=== PATIENT | male | born 1995 | race African-American/Black ===

== ENCOUNTER 2018-12-31 15:15 | Observation (INO) ==
[2018-12-31] MEDS ORDERED: LACTATED RINGERS 1,000 ML IV STA (15:18)
[2018-12-31] MEDS ORDERED: DIPH/TET/ACEL PERT BOOSTER VACCINE 0.5 ML VIAL IM ONE (15:18)
[2018-12-31] MEDS ORDERED: HYDROmorphone 2 MG/1 ML VIAL IV STA (15:19)
[2018-12-31] MEDS ORDERED: ONDANSETRON 4 MG/2 ML VIAL IV STA (15:19)
[2018-12-31 15:49] LABS: Basophils # 0.1 10*3/uL (0.0-0.2); Basophils % 0.5 % (0.0-0.8); Eosinophils # 0.1 10*3/uL (0.0-0.87); Eosinophils % 0.9 % (0.00-10.9); Hemoglobin 14.9 GM/DL (14.0-18.0); Immature Granulocytes % 0.5 %; Immature Granulocytes Absolute 0.06 #; Lymphocytes # 3.6 10*3/uL (1.4-4.0); Mean Corpuscular HGB Conc 33.1 GM/DL (32-36); Mean Corpuscular Volume 96.4 FL (87-102); Mean Platelet Volume 11.4 FL (9.6-12.0); Monocytes % 5.1 % (1.7-12.7); Platelet Count 218 T/CUMM (130-400); Red Blood Count 4.67 MC/CUMM (3.8-5.5); Red Cell Distribution Width 12.3 % (9.3-17.3); White Blood Count 12.8 T/CUMM (4-12)
[2018-12-31 15:51] LABS: Alanine Aminotransferase 19 U/L (16-61); Albumin 4.5 G/DL (3.4-5.0); Alkaline Phosphatase 60 U/L (45-117); Aspartate Amino Transferase 17 U/L (0-37); Bilirubin,Total < 0.39 MG/DL (0.2-1.0); Blood Urea Nitrogen 4 MG/DL (7-18); Calcium 9.7 MG/DL (8.5-10.1); Estimated Glom Filtration Rate 104 ML/MIN; Glucose 132 MG/DL (74-106); Osmolality,Calculated 281.1 MOS/KG (273-304); Total Protein 8.1 G/DL (6.4-8.3)
[2018-12-31 15:56] LABS: PT Patient Result 10.5 SECS (9.6-12.2); Partial Thromboplastin Time < 21.0 SECS (20.8-36.0)
[2018-12-31 16:49] LABS: Apearance,Urine CLEAR (Clear); Bacteria,Urine Occasional /HPF (Few); Bilirubin,Urine Negative (Negative); Blood, Urine Large mg/dL (Negative); Glucose,Urine (UA) Negative (Negative); Hyaline Casts,Urine 1 /LPF (0-3); Ketones,Urine Negative (Negative); Mucus,Urine Occasional /LPF (Occasional); Nitrite,Urine Negative (Negative); Protein,Urine Negative; RBC,Urine 3 /HPF (0-4); Urine Color Straw (Yellow); Urine Specific Gravity 1.034 (1.001-1.035); Urine Urobilinogen < 2.0 EU/DL (0.2-1.0); WBC,Urine 2 /HPF (0-6)
[2018-12-31 16:52] LABS: Barbiturates Screen,Urine Negative (Negative); Benzodiazepines Screen,Urine Negative (Negative); Cannabinoid Screen,Urine Positive (Negative); Opiate Screen,Urine Negative (Negative); Phencyclidine Screen,Urine Negative (Negative)
[2018-12-31] MEDS ORDERED: HEPARIN/NACL 0.9% 2 UNITS/ML 2,000 ML IV ONE (17:55)
[2018-12-31] MEDS ORDERED: ACETAMINOPHEN 325 MG TABLET PO PRN (21:13)
[2018-12-31] MEDS ORDERED: ONDANSETRON 4 MG/2 ML VIAL IV PRN (21:13)
[2018-12-31] MEDS ORDERED: PROMETHAZINE 25 MG/1 ML VIAL IM PRN (21:13)
[2018-12-31] MEDS: LACTATED RINGERS 1,000 ML IV SCH (22:25)
[2019-01-01] MEDS: LACTATED RINGERS 1,000 ML IV SCH (06:41)
[2019-01-01] MEDS ORDERED: PANTOPRAZOLE 40 MG TABLET PO SCH (09:00)
[2019-01-01 11:04] VITALS: BP 120/74
[2019-01-01] MEDS ORDERED: ENOXAPARIN 40 MG/0.4 ML SYRINGE SUBCUT SCH (14:00)
== END 2019-01-01 13:07 | disposition home or self-care (01) ==
LOC: N.ED 15:15 → N.EDINP 15:15 → N.3E 20:46
PROVIDERS: ADMIT Surgery; ATTEND Surgery